=== PATIENT | female | born 1940 | race Caucasian/White ===

== ENCOUNTER 2019-12-29 10:01 | Emergency (ER) | payer OTHER ==
[~2019-12-29] VITALS: Ht 160 cm; Wt 60.8 kg
[2019-12-29] MEDS ORDERED: HUMULIN 70100 UNIT/1 (10:11)
[2019-12-29] MEDS ORDERED: HORIZANT300 MG PO (10:11)
[2019-12-29] MEDS ORDERED: SIMVASTATIN5 MG (10:12)
== END 2019-12-29 14:30 | disposition home or self-care (01) ==
LOC: ER 10:01
DX: L03.116 Cellulitis of left lower limb (principal); Z03.818 Encounter for observation for suspected exposure to other biological agents ruled out

== ENCOUNTER 2024-03-13 09:31 | Emergency (ER) | payer OTHER ==
[~2024-03-13] VITALS: Ht 160 cm; Wt 49.0 kg
[~2024-03-13 09:31] MED LIST: HORIZANT300 MG PO; HUMULIN 70100 UNIT/1; SIMVASTATIN5 MG
== END 2024-03-13 13:21 | disposition home or self-care (01) ==
LOC: ER 09:33
DX: S49.82XA Other specified injuries of left shoulder and upper arm, initial encounter (principal); W19.XXXA Unspecified fall, initial encounter; Y93.89 Activity, other specified; Y92.098 Other place in other non-institutional residence as the place of occurrence of the external cause; Y99.8 Other external cause status; M25.522 Pain in left elbow; M25.512 Pain in left shoulder; M79.602 Pain in left arm